=== PATIENT | female | born 1960 | race Caucasian/White ===

== ENCOUNTER 2017-08-30 10:47 | Emergency (ER) | payer BC ==
[2017-08-30 11:42] LABS: Bilirubin Negative (Negative); Blood, Urine Negative (Negative); Glucose, Urine (Dipstick) Negative (Negative); Ketone, Urine Negative (Negative); Nitrite Negative (Negative); Protein, Urine (Dipstick) Negative (Neg-Trace)
[2017-08-30 11:48] LABS: #Basophils 0.1 thou/uL (0.0-0.2); #Eosinphils 0.1 thou/uL (0.0-0.7); #Lymphocytes 3.3 thou/uL (1.20-3.40); #Monocytes 0.9 thou/uL (0.11-0.59); #Neutrophils 7.1 thou/uL (1.40-6.50); %Basophils 0.8 % (0.0-1.0); %Eosinophils 1.1 % (0.0-10.0); %Lymphocytes 28.7 % (21.0-51.0); %Monocytes 7.5 % (0.0-10.0); Hematocrit 46.6 % (36.0-47.0); Mean Platelet Volume 7.8 fL (7.4-10.4); Red Blood Cell (RBC) Count 4.99 mill/uL (4.20-5.40); White Blood Cell (WBC) Count 11.6 thou/uL (4.8-10.8)
[2017-08-30 12:10] LABS: ALT (SGPT) 18 U/L (8-55); AST (SGOT) 21 U/L (5-34); Alkaline Phosphatase 144 U/L (40-150); Anion Gap 12 mmol/L (10-20); BUN (Urea Nitrogen) 9 mg/dL (9.8-20.1); Bilirubin, Total 0.4 mg/dL (0.2-1.2); Calc. Creatinine Clearance 0 mL/min (70-130); Calcium 9.5 mg/dL (7.8-10.44); Carbon Dioxide 26 mmol/L (22-29); Chloride 104 mmol/L (98-107); Estimated GFR-MDRD 85; Globulin 3.5 g/dL (2.4-3.5); Lipase 45 U/L (8-78); Protein, Total 7.7 g/dL (6.0-8.3)
--- NOTE | 2017-08-30 14:37 | ULT ---
RIGHT UPPER QUADRANT ULTRASOUND: Date: 08/30/17 HISTORY: Right upper quadrant abdominal pain. FINDINGS: The gallbladder is not well visualized. There is an echogenic area in the expected location of the ga llbladder which could be related to a completely contracted gallbladder. I am unsure if this is relat ed to gallbladder filled with stones or sludge. This is difficult to adequately evaluate on this exam . The common duct is normal in caliber and measures 0.4 cm in diameter. The visualized portions of the pancreas, visualized portions of the IVC, liver, and right kidney demo nstrate a normal sonographic appearance. The right kidney measures 10.2 cm in length. IMPRESSION: Suboptimal evaluation of the gallbladder. There is an echogenic area seen in the expected location of the gallbladder. I am unsure if this is related to a completely contracted gallbladder or whether th is is related to a partially contracted gallbladder with sludge. No shadowing is seen to suggest calc melinda. The common duct is normal in caliber. POS: [facility]
--- NOTE | 2017-08-30 14:39 | CT ---
NONCONTRAST CT ABDOMEN: Date: 08/30/17 HISTORY: Right upper quadrant abdominal pain. Ultrasound demonstrated contracted gallbladder. FINDINGS: Lack of intravenous contrast does limit evaluation of the parenchymal organs. There are minimal ground-glass densities at each lung base, probably related to mild volume loss. The gallbladder is completely contracted as noted on recent right upper quadrant ultrasound. The liver, spleen, pancreas, bilateral adrenal glands, and kidneys demonstrate a grossly normal nonen hanced CT appearance. Vascular calcifications are seen in the abdominal aorta and iliac arteries. The appendix is visualized in a retrocecal location without CT evidence of appendicitis. There are prominent degenerative changes seen at the L4-5 level and to a lesser extent the L5-S1 leve l. IMPRESSION: No acute findings are seen on this nonenhanced CT scan of the abdomen. POS: [facility]
== END 2017-08-30 13:08 | disposition home or self-care (01) ==
LOC: ERS 10:47
DX: R10.13 Epigastric pain (principal); R10.811 Right upper quadrant abdominal tenderness; F17.210 Nicotine dependence, cigarettes, uncomplicated
CPT/HCPCS: 36415; 74150; 76705; 80053; 81003; 83690; 85025

== ENCOUNTER 2017-09-02 17:29 | Outpatient (CLI) | payer BC | END 2017-09-02 17:30 | disposition home or self-care (01) | LOC: LABBT 17:29 | PROVIDERS: ATTEND Specialist | DX: Z01.818 Encounter for other preprocedural examination (principal); K80.12 Calculus of gallbladder with acute and chronic cholecystitis without obstruction ==

== ENCOUNTER 2017-09-03 05:45 | Day surgery (SDC) | payer BC ==
[2017-09-02 17:46] VITALS: BMI 37.8
--- NOTE | 2017-09-02 18:49 | HP ---
HISTORY OF PRESENT ILLNESS: Lilly Rawls is a 57-year-old female with acute cholecystitis, cholel ithiasis. She presented two years ago with similar type complaints and was seen by a physician and t old she had a fatty liver. She has had some intermittent bloating and indigestion, not too bothersom e, but on this occasion has severe right upper quadrant pain, back radiation and nausea. She present ed in the emergency room, saw Dr. Barron on 08/30/2017. She had a contracted gallbladder with echog enic material. CAT scan of abdomen and pelvis were unremarkable. CBC on 08/30/2017, White count 11, hemoglobin 15. Comprehensive metabolic profile unremarkable. Liver function tests and lipase are n ormal. Urinalysis unremarkable. The patient states that she did not have a very good Thanksgiving w ith her ongoing gallbladder complaints. On exam there, she has acute cholecystitis with a positive M urphy's sign. She desires cholecystectomy as soon as possible. She had propofol during her colonosc opy at [facility], and had respiratory problems afterwards and was told to avoid propofol since then. TOBACCO: A 3/4 pack per day. ALCOHOL: Rarely. MEDICATIONS: Pravastatin 5 mg a day, furosemide 10 mg a day as needed. PAST MEDICAL HISTORY: Cellulitis of the left leg, treated with antibiotics colonoscopy, 12/2015 tonsillectomy. Tubal ligat ion, . She has shingles in the past. PAST SURGICAL HISTORY: Tonsillectomy, , tubal ligation. REVIEW OF SYSTEMS: Ten point noncontributory. She reports a cardiac stress test 5-6 years ago that was normal. She denies any cardiac symptoms. There is no chest pain or pressure. PHYSICAL EXAMINATION: VITAL SIGNS: 254 pounds, 5 feet 8. 160/95, saturating 97 degrees, 98.8 degrees. HEAD, EARS, EYES, NOSE AND THROAT: Unremarkable. LUNGS: Clear to auscultation. CARDIAC: Regular rate and rhythm without murmur or gallop. ABDOMEN: Soft, tenderness in right upper quadrant with guarding and rebound, positive Hodge's sign. EXTREMITIES: Unremarkable. ASSESSMENT AND PLAN: 1. Symptomatic cholelithiasis. Recommend laparoscopic video cholecystectomy. Risks of infection, b leeding, visceral and biliary injury and open procedure discussed. Questions answered. We will plan this in the morning. We will plan follow up in 2 weeks. 2. Tobacco abuse.
[2017-09-03] MEDS ORDERED: Scopolamine 1.5 mg/72 hour Patch ONE (06:13)
[2017-09-03] MEDS ORDERED: Levofloxacin 500 mg/D5W 100 ml Premix Bag ONE (06:14)
[2017-09-03] MEDS ORDERED: Ketorolac Tromethamine 30 MG/ML VIAL ONE (06:14)
[2017-09-03] MEDS ORDERED: Bupivacaine PF 0.5% 30 ML VIAL ONE (06:33)
[2017-09-03] MEDS ORDERED: Bupivacaine/Epinephrine 0.25% 30 ML VIAL ONE (06:33)
[2017-09-03] MEDS ORDERED: Midazolam HCl 2 mg/2 ml Vial ONE (07:31)
[2017-09-03] MEDS ORDERED: Fentanyl 250 MCG/5 ML VIAL ONE (07:37)
[2017-09-03] MEDS ORDERED: SUGAMMADEX SODIUM 500 MG/5 ML VIAL ONE (08:29)
--- NOTE | 2017-09-03 09:27 | OP ---
DATE OF PROCEDURE: 09/03/2017 PREOPERATIVE DIAGNOSIS: Chronic cholecystitis, cholelithiasis. POSTOPERATIVE DIAGNOSIS: Chronic cholecystitis, cholelithiasis. PROCEDURE: Laparoscopic video cholecystectomy. SURGEON: Dr. Kamari Kwok ANESTHESIA: General. Local 0.25% Marcaine with epinephrine, 30 mL. PROCEDURE: The patient was taken to the operating room where under general anesthesia, abdomen was p repared with ChloraPrep, draped in routine fashion. Local anesthetic infiltrated into skin and subcu taneous tissue about each port site. Infraumbilical incision made and pneumoperitoneum to 15 mmHg ob tained with the Veress needle, replacing it with a 5 port and then placing a video laparoscope, placi ng the remainder of the ports under laparoscopic visualization. Right subxiphoid incision made and 1 1 port placed. Right subcostal incision made mid clavicular anterior axillary lines and 5 ports plac ed. Liver appeared to be normal. Fundus of gallbladder grasped and reflected cephalad. Infundibulu m grasped and reflected laterally. Cystic artery and duct dissected free. Critical view obtained wi th two-thirds dissection of gallbladder from the cystic plate and cystic artery and duct doubly clipp ed proximally, divided, and gallbladder dissected free from the liver bed obtaining good hemostasis p rior to division of final peritoneal attachments. Gallbladder and contents removed and submitted to Pathology. Good hemostasis ensured in liver bed using cautery. Irrigant and pneumoperitoneum evacua kevin. All instruments removed and all skin incisions approximated with interrupted subdermal 4-0 [place] cryl and DermaGlue applied.
[2017-09-03] MEDS ORDERED: Promethazine HCl 25 MG/ML VIAL ONE (10:14)
[2017-09-03] MEDS ORDERED: Ondansetron HCl/PF 4 MG/2 ML Vial ONE (14:02)
[2017-09-03] MEDS ORDERED: Dexamethasone 20 MG/5 ML VIAL ONE (14:02)
[2017-09-03] MEDS ORDERED: Glycopyrrolate 0.2 MG/ML 5 ML SYRINGE ONE (14:02)
[2017-09-03] MEDS ORDERED: Lidocaine 1% PF 5 ML VIAL ONE (14:02)
== END 2017-09-03 10:55 | disposition home or self-care (01) ==
LOC: SDC 05:45
PROVIDERS: ATTEND Specialist
PROC: 0FT44ZZ Resection of Gallbladder, Percutaneous Endoscopic Approach (ICD-10-PCS; principal; 2017-09-03)
DX: K80.10 Calculus of gallbladder with chronic cholecystitis without obstruction (principal); F17.210 Nicotine dependence, cigarettes, uncomplicated; Z79.82 Long term (current) use of aspirin; Z79.899 Other long term (current) drug therapy; Z88.8 Allergy status to other drugs, medicaments and biological substances; Z98.51 Tubal ligation status; Z90.89 Acquired absence of other organs; Z98.890 Other specified postprocedural states; Z86.19 Personal history of other infectious and parasitic diseases
CPT/HCPCS: 88304; 93005; 93010; 96374; J0131; J1100; J1885; J1956; J2001; J2250; J2405; J2550; J3010; S0020

== ENCOUNTER 2017-09-17 12:35 | Outpatient (CLI) | payer BC ==
--- NOTE | 2017-09-17 15:45 | MMO ---
EXAM: BILATERAL SCREENING MAMMOGRAM: HISTORY: A 57-year-old female. Routine screening mammography. COMPARISON: Prior mammograms performed at [place] are not available. Therefore, the current study will be treat ed as a baseline mammogram. TECHNIQUE: CC and MLO views of both breasts are submitted for interpretation. This patient's mammogram is revie wed with the assistance of computer-aided detection. FINDINGS: Breasts are composed of scattered fibroglandular tissue. Bilaterally, no suspicious dominant mass, a rchitectural distortion, or suspicious calcification. Benign-appearing calcifications in the right b reast. IMPRESSION: BI-RADS category 2, benign findings. RECOMMENDATION: Annual mammogram. POS: [facility]
== END 2017-09-17 12:36 | disposition home or self-care (01) ==
LOC: SCSMAMMO 12:35
PROVIDERS: ATTEND Family Medicine
DX: Z12.31 Encounter for screening mammogram for malignant neoplasm of breast (principal)
CPT/HCPCS: 77067; G0202

== ENCOUNTER 2017-10-12 10:05 | Observation (INO) | payer BC ==
[2017-10-12 11:07] LABS: #Basophils 0.1 thou/uL (0.0-0.2); #Eosinphils 0.2 thou/uL (0.0-0.7); #Lymphocytes 1.9 thou/uL (1.20-3.40); #Monocytes 0.9 thou/uL (0.11-0.59); #Neutrophils 6.5 thou/uL (1.40-6.50); %Basophils 0.9 % (0.0-1.0); %Eosinophils 2.5 % (0.0-10.0); %Lymphocytes 19.7 % (21.0-51.0); %Neutrophils 67.8 % (42.0-75.0); Hemoglobin 15.8 g/dL (12.0-16.0); Mean Corpuscular HGB CONC 33.4 g/dL (32.0-36.0); Mean Corpuscular Hemoglobin 30.9 pg (27.0-31.0); Mean Corpuscular Volume 92.7 fl (81.0-99.0); Platelet Count 290 thou/uL (130-400); RBC Distribution Width 12.7 % (11.5-14.5); Red Blood Cell (RBC) Count 5.09 mill/uL (4.20-5.40); White Blood Cell (WBC) Count 9.6 thou/uL (4.8-10.8)
[2017-10-12 11:13] LABS: INR-International Normal Ratio 0.9; Prothrombin Time 12.1 SEC (12.0-14.7)
[2017-10-12 11:14] LABS: PTT 31.8 SEC (22.9-36.1)
[2017-10-12 11:30] LABS: ALT (SGPT) 25 U/L (8-55); AST (SGOT) 21 U/L (5-34); Albumin 4.3 g/dL (3.5-5.0); Alkaline Phosphatase 152 U/L (40-150); Anion Gap 16 mmol/L (10-20); BUN (Urea Nitrogen) 10 mg/dL (9.8-20.1); Bilirubin, Total 0.4 mg/dL (0.2-1.2); Calc. Creatinine Clearance 0 mL/min (70-130); Calcium 9.9 mg/dL (7.8-10.44); Carbon Dioxide 20 mmol/L (22-29); Chloride 107 mmol/L (98-107); Estimated GFR-MDRD 84; Globulin 3.4 g/dL (2.4-3.5); Glucose 104 mg/dL (70-105); Potassium 4.3 mmol/L (3.5-5.1); Protein, Total 7.7 g/dL (6.0-8.3); Sodium 139 mmol/L (136-145)
[2017-10-12 11:33] LABS: CKMB 6.5 ng/mL (0-6.6); Troponin I 0.012 ng/mL (< 0.028)
--- NOTE | 2017-10-12 11:44 | CT ---
CT OF HEAD NONCONTRAST: CLINICAL HISTORY: Altered mental status, facial droop, and weakness, new onset. FINDINGS: Ventricular system is normal in size. No intracranial hemorrhage or mass effect or midline shift. P aranasal sinuses are clear. IMPRESSION: Normal noncontrast brain CT. POS: [facility]
[2017-10-12] MEDS ORDERED: Ondansetron HCl/PF 4 MG/2 ML Vial IVP PRN (18:55)
[2017-10-12] MEDS ORDERED: Ondansetron ODT 4 MG TAB PO PRN (18:55)
[2017-10-12] MEDS ORDERED: Guaifenesin DM 100-10/5 ML UDCUP PO PRN (18:55)
--- NOTE | 2017-10-12 20:02 | HP ---
PRIMARY CARE PHYSICIAN: Dr. Shanna House. CHIEF COMPLAINT: "The left side of my face is numb and weak." HISTORY OF PRESENT ILLNESS: Ms. Rawls is a very pleasant 57-year-old female who has a history of hy percholesterolemia. She was in her usual state of health until the day prior to admission. She woke up in the morning with the left side of her tongue feeling numb and the tongue was numb pretty much all day. This morning, she woke up and says that her lips felt swollen and she could not close her l eft eye. She also said that her ear on the left side was hurting as well. She thought it might be d ue to the ear infection. She says she was seen in Urgent Care and diagnosed with ear infection, whic h was thought to be viral and was given some cough medicine with decongestion and sent home. She say s that she also felt like her speech was a little bit slurred this morning and said that she had diff iculty lifting her tongue up to the roof of her mouth and for this reason she came to the ER for eval uation. A CT scan of the brain was done which was negative and she is being admitted for possible ce rebrovascular accident versus Nguyen's palsy. REVIEW OF SYSTEMS: Constitutional: There are no fevers, chills, night sweats, no weight loss. HEENT: She denies any h eadaches except for some pain on the left side of her face and ear pain. She had a mild sore throat, but no erythema. She denies any neck pain, no adenopathy. Pulmonary: No hemoptysis, no cough, no wheezing. Cardiovascular: She denies any chest pain, no shortness of breath, no PND, no orthopnea. Gastrointestinal: No abdominal pain, no nausea, no vomiting, no change in bowels. Genitourinary: No urinary frequency, hematuria or hesitancy. Neurologic: As in the history of present illness. Autumn guillen has had no lower extremity or upper extremity weakness, numbness. No seizures. Skin/Integument: She had a bad cellulitis approximately a year or so ago and still has some skin changes associated wi th that. Psychiatric: No history of anxiety or depression. PAST MEDICAL HISTORY: Significant for hypercholesterolemia. PAST SURGICAL HISTORY: Bilateral tubal ligation, tonsillectomy, and cholecystectomy. ALLERGIES: No known drug allergies. SOCIAL HISTORY: She smokes 1 pack a day for 40 years. Denies any alcohol use. She is and s he has decreased her smoking use down to about 3-4 cigarettes a day. FAMILY HISTORY: Significant for hypertension and diabetes she says in all of the men in her family. Her mother had a heart attack and at age 48. Father had a severe infection that resulted in en d-stage renal disease and he as complications from that. CURRENT MEDICATIONS: Include Crestor as well as Wellbutrin and aspirin occasionally. She did not te ll me the doses of the medications. PHYSICAL EXAMINATION: GENERAL: She is alert and oriented, no acute distress. VITAL SIGNS: Her blood pressure has been elevated at 160-180 systolic over 100, heart rate is in the 80s, respiratory rate of 16. She is afebrile. HEENT: Her pupils are equal, round, and reactive. Extraocular muscles are intact. Sclerae are anic teric. Throat, no erythema, no exudates. Uvula is midline. CARDIOVASCULAR: She has a normal S1, S2. I do not appreciate an S3 or S4. No murmurs, clicks or ru bs. ABDOMEN: Soft, nontender, nondistended. Positive for bowel sounds. No rebound, no guarding. EXTREMITIES: There is no edema. NEUROLOGIC: She does have what appears to be a facial nerve paralysis with difficulty closing the le ft eye and weakness in the eyelids as well as facial droop on that side. Her muscle strength is 5/5 in both her upper and lower extremities. LABORATORY RESULTS: White blood cell count 9.6, hemoglobin 15.8, hematocrit is 47.2, platelet count is 290. INR 0.9. Sodium 139, potassium 4.3, chloride is 107, CO2 is 20, BUN 10, creatinine 0.72, gl ucose is 104. ASSESSMENT AND PLAN: This is a pleasant 57-year-old female that presents with a left facial droop. I suspect this is likely a seventh nerve palsy. It appears that she has had a recent ear infection a nd on exam she did have some erythema on her tympanic membranes on the left, but there was no fluid b ehind the drum. We will place her in observation, get an MRI of the brain, as well as carotid Dopple rs. If this is negative, then likely she can be discharged home, possibly on a short course of stero ids and on saline eye lubricants and eye care.
[2017-10-12] MEDS: Acetaminophen 325 MG TAB PO PRN (20:05)
[2017-10-12] MEDS: Bupropion 150 MG SR TAB PO SCH (21:15)
[2017-10-12] MEDS: Docusate 100 MG CAP PO SCH (21:23)
[2017-10-12] MEDS: Famotidine 20 MG TAB PO SCH (21:23)
[2017-10-12 21:27] VITALS: BMI 39.4
[2017-10-13] MEDS: Acetaminophen 325 MG TAB PO PRN ×3 (04:29→13:54)
[2017-10-13 05:40] LABS: Cardiac Risk 5.9 (Less than 4.5)
[2017-10-13] MEDS ORDERED: Enoxaparin Sodium 40 MG/0.4 ML SYRINGE SC SCH (09:00)
[2017-10-13] MEDS ORDERED: Aspirin 325 mg Enteric Coated Tablet PO SCH (09:00)
[2017-10-13] MEDS: Docusate 100 MG CAP PO SCH (10:04)
[2017-10-13] MEDS: Bupropion 150 MG SR TAB PO SCH (10:05)
[2017-10-13] MEDS: Famotidine 20 MG TAB PO SCH (10:06)
[2017-10-13 11:56] VITALS: BP 133/82; TEMP 98.4
--- NOTE | 2017-10-13 12:05 | MRI ---
MRI BRAIN WITHOUT CONTRAST: HISTORY: TIA. TECHNIQUE: Multiplanar, multisequential imaging of the brain obtained. FINDINGS: The ventricles have normal size and position. No evidence of restricted diffusion. There is no evid ence of acute infarct. No mass or edema. No significant white matter abnormality. The pituitary is mildly prominent for age, measuring up to 1.2 cm in AP dimension. The intracranial and internal carotid arteries, proximal cerebral arteries, and basilar arteries show flow voids. The dural venous sinuses are patent. The paranasal sinuses and mastoids appear clear. IMPRESSION: 1. Mildly prominent pituitary for age. Recommend clinical correlation. Pituitary protocol can be p erformed as indicated. 2. Otherwise no acute abnormality. POS: [facility]
--- NOTE | 2017-10-13 15:35 | PDOC.PN ---
- Subjective Encounter Start Date: 10/13/17 Encounter Start Time: 15:33 Ms. Rawls was seen today in follow-up of facial weakness. She is feeling better today - Objective Resuscitation Status: Resuscitation Status FULL:Full Resuscitation MAR Reviewed: Yes Vital Signs & Weight: Vital Signs (12 hours) Temp Pulse Resp BP BP Pulse Ox 10/13/17 11:06 98.4 F 80 20 133/82 94 L 10/13/17 07:50 97.8 F 79 20 10/13/17 07:34 97.8 F 79 20 134/91 H 95 10/13/17 04:00 98.2 F 88 18 127/69 95 Weight Weight 259 lb 2 oz I&O: 10/12/17 10/13/17 10/14/17 06:59 06:59 06:59 Intake Total 210 Output Total 925 Balance -715 Result Diagrams: 10/12/17 10:58 10/12/17 10:58 Phys Exam - Physical Examination HEENT: PERRLA Left facial nerve paralysis Respiratory: no wheezing, no rales, no rhonchi, clear to auscultation bilateral Cardiovascular: RRR, no significant murmur Gastrointestinal: soft, non-tender, positive bowel sounds Musculoskeletal: no edema Dx/Plan (1) Aj's palsy Code(s): G51.0 - AJ'S PALSY Status: Acute (2) Obesity (BMI 35.0-39.9 without comorbidity) Code(s): E66.9 - OBESITY, UNSPECIFIED Status: Acute - Plan * Left facial weakness- Dallas's Palsy * She can be discharged home today, and she has been instructed on Eye care, and will discharge home on a Medrol dose pack..
--- NOTE | 2017-10-14 00:07 | DIS ---
DATE OF ADMISSION: 10/12/2017 DATE OF DISCHARGE: 10/13/2017 PRIMARY CARE PHYSICIAN: Dr. Shanna Gabriel. DISCHARGE DISPOSITION: Home. PRIMARY DISCHARGE DIAGNOSES: 1. Nguyen's palsy. 2. Dyslipidemia. 3. Obesity, BMI is 39. DISCHARGE MEDICATIONS: Included Medrol Dosepak. The patient is also to use Natural Tears as needed through the day. She is to continue Crestor 5 mg at bedtime, Lasix 20 mg at bedtime, buspirone 150 mg extended release daily and aspirin 650 mg daily. PROCEDURES DONE DURING THE ADMISSION: The patient had a CT scan of the brain, which was negative for any acute intracranial abnormality. She also had an MRI of the brain, which was negative for any ac katelyn intracranial abnormality such as a mass or bleed. CODE STATUS: Full code. ALLERGIES: To PREGABALIN and PROPOFOL. HOSPITAL COURSE: Ms. Rawls is a pleasant 57-year-old female that came in to the hospital with left facial numbness and weakness. She had an MRI which was negative for stroke and was found to have a B ell's palsy. She was subsequently discharged home. She was instructed on eye care prior to being di scharged and keeping the eye lubricated through the day and patching it at night in order to prevent corneal dryness and abrasion, and also to have close follow up with her primary care physician.
== END 2017-10-13 16:06 | disposition home or self-care (01) ==
LOC: ERS 10:05 → 2SW 13:01
PROVIDERS: ADMIT Internal Medicine; ATTEND Internal Medicine
DX: G51.0 Bell's palsy (principal); E78.00 Pure hypercholesterolemia, unspecified; F17.210 Nicotine dependence, cigarettes, uncomplicated; E66.9 Obesity, unspecified; Z68.39 Body mass index [BMI] 39.0-39.9, adult; Z79.82 Long term (current) use of aspirin; Z79.899 Other long term (current) drug therapy; Z88.8 Allergy status to other drugs, medicaments and biological substances; Z83.3 Family history of diabetes mellitus; Z82.49 Family history of ischemic heart disease and other diseases of the circulatory system; Z98.51 Tubal ligation status; Z90.49 Acquired absence of other specified parts of digestive tract; Z90.89 Acquired absence of other organs; Z98.890 Other specified postprocedural states
CPT/HCPCS: 36415; 36416; 70450; 70551; 80053; 80061; 82553; 84484; 85025; 85610; 85730; 93005; 94760; 96372; G0378; J1650

== ENCOUNTER 2018-10-22 08:22 | Outpatient (CLI) | payer BC ==
--- NOTE | 2018-10-22 11:36 | MMO ---
BILATERAL MAMMOGRAMS: HISTORY: Screening mammography. COMPARISON: 09/17/2017. FINDINGS: Scattered fibroglandular densities. No dominant mass or suspicious calcifications. The study was ev aluated with the assistance of computer-aided detection. IMPRESSION: BI-RADS category 1. Negative. Suggest routine followup. BIRADS 1: Negative Routine annual screening mammography (for women over age 40) POS: [facility]
== END 2018-10-22 08:23 | disposition home or self-care (01) ==
LOC: SCSMAMMO 08:22
PROVIDERS: ATTEND Family Medicine
DX: Z12.31 Encounter for screening mammogram for malignant neoplasm of breast (principal)
CPT/HCPCS: 77067

== ENCOUNTER 2021-05-25 | Outpatient (CLI) | payer BC | END 2021-05-25 07:11 | disposition home or self-care (01) ==